=== PATIENT | male | born 2000 | race Two or more races ===

== ENCOUNTER 2022-01-05 08:42 | Emergency (ER) | payer MEDICAID, OTHER ==
[2022-01-05 08:47] VITALS: BP 115/58
[2022-01-05] MEDS ORDERED: ACETAMINOPHEN 325 MG TAB PO ONE ×2 (08:48→09:00)
[2022-01-05] MEDS ORDERED: cefTRIAXone SOD 1,000 MG VL IM ONE (09:15)
[2022-01-05] MEDS ORDERED: AZIT250T8 PO (09:28)
[2022-01-05] MEDS ORDERED: ACE650RS PR (09:28)
== END 2022-01-05 09:37 | disposition home or self-care (01) ==
LOC: ER 08:42 → EDBD 08:42 → ER 09:37
DX: U07.1 COVID-19 (principal); J02.9 Acute pharyngitis, unspecified
CPT/HCPCS: 71045; 96372; 99283; J0696